=== PATIENT | male | born 1975 | race Two or more races ===

== ENCOUNTER 2020-05-25 15:29 | Emergency (ER) | payer OTHER ==
[~2020-05-25] VITALS: Ht 165.1 cm; Wt 74.8 kg
[2020-05-25] MEDS ORDERED: LOSARTAN POTASS50 MG (15:58)
[2020-05-25] MEDS ORDERED: SYNTHROID150 MCG (15:58)
== END 2020-05-25 18:13 | disposition home or self-care (01) ==
LOC: ER 15:29
DX: M20.012 Mallet finger of left finger(s) (principal)